=== PATIENT | male | born 1945 | race Hispanic/Latino ===

== ENCOUNTER → 2024-01-29 | Outpatient (CLI) | payer OTHER, MEDICARE ==
[~2024-01-29] MED LIST: HYDR-4064 PO; LISI1TAB51 PO; LORA2TAB2 PO; LOVA40TA2 PO; MONT-39 PO; OXYMETAZOLINE NASAL; PRED10TA3 PO
== END | disposition home or self-care (01) ==
LOC: RAH 11:03
PROVIDERS: ATTEND Family Medicine
DX: M47.812 Spondylosis without myelopathy or radiculopathy, cervical region (principal); M54.2 Cervicalgia; M43.22 Fusion of spine, cervical region
CPT/HCPCS: 72050